=== PATIENT | male | born 1950 | race Caucasian/White ===

== ENCOUNTER → 2022-07-20 | Outpatient (CLI) | payer MEDICARE | LOC: HEART CORB 09:45 | DX: I25.10 Atherosclerotic heart disease of native coronary artery without angina pectoris (principal); I50.30 Unspecified diastolic (congestive) heart failure; R07.2 Precordial pain; R94.39 Abnormal result of other cardiovascular function study | CPT/HCPCS: 78452; A9502; J2785 ==